=== PATIENT | male | born 1985 | race Caucasian/White ===

== ENCOUNTER 2022-08-29 13:31 | Inpatient (IN) | payer OTHER ==
[2022-08-29 16:00] VITALS: BMI 23.1
[2022-08-29] MEDS ORDERED: MAGNESIUM HYDROX 2400MG/30ML ORAL SUSPENSION 30 ML CUP PO PRN (19:09)
[2022-08-29] MEDS ORDERED: MAG HYDROX/AL HYDROX/SIMETH 30 ML UNIT-DOSE CUP PO PRN (19:09)
[2022-08-29] MEDS ORDERED: P-EPHED 60MG/TRIPROLIDI 2.5MG TABLET PO PRN (19:09)
[2022-08-29] MEDS ORDERED: NICOTINE 10 MG CARTRIDGE (INHALER) IH PRN (19:09)
[2022-08-29] MEDS ORDERED: LOPERAMIDE HCL 2 MG CAPSULE PO PRN (19:09)
[2022-08-29] MEDS ORDERED: ACETAMINOPHEN 325 MG TABLET (FP) PO PRN (19:09)
[2022-08-29] MEDS ORDERED: IBUPROFEN 400 MG TABLET (FP) PO PRN (19:09)
[2022-08-29] MEDS ORDERED: POLYETHYLENE GLYCOL (HEALTHYLAX) 3350 17 GM PACKET PO PRN (19:09)
[2022-08-29] MEDS: PRENATAL VITAMINS W/ FOLIC ACID TABLET (FP) PO SCH (19:27)
[2022-08-29] MEDS ORDERED: MELATONIN 5 MG TABLETS PO SCH (22:00)
[2022-08-29] MEDS: hydrOXYzine PAMOATE 25 MG CAPSULE (FP) PO PRN (22:02)
[2022-08-29] MEDS: THIAMINE HCL 100 MG TABLET (FP) PO SCH (22:02)
[2022-08-29] MEDS ORDERED: TUBERCULIN PPD 5 TU/0.1ML VIAL ID ONE (22:06)
[2022-08-29] MEDS: NICOTINE 7 MG/24 HOURS TOPICAL PATCH TD SCH (22:11)
[2022-08-30] MEDS: PRENATAL VITAMINS W/ FOLIC ACID TABLET (FP) PO SCH (09:51)
[2022-08-30] MEDS: NICOTINE 7 MG/24 HOURS TOPICAL PATCH TD SCH (09:51)
[2022-08-30 10:26] LABS: HEMATOCRIT 43.3 % (35.4-49); HEMOGLOBIN 13.9 GM/dL (11.7-16.9); MCH 22.4 pg (25.7-33.7); MEAN CELL VOLUME 70.1 fl (80-96); PLATELET COUNT 313 10^3/uL (134-434); RBC 6.18 M/mm3 (4.00-5.60); RDW 15.6 % (11.9-15.9); WHITE BLOOD COUNT 10.8 K/mm3 (4.0-10.0)
[2022-08-30 11:30] LABS: ALBUMIN 3.8 g/dl (3.4-5.0); BLOOD UREA NITROGEN 21.2 mg/dL (7-18); CALCIUM 9.8 mg/dL (8.5-10.1)
[2022-08-30 11:33] LABS: CREATININE 0.9 mg/dL (0.55-1.3)
[2022-08-30 11:35] LABS: TOT PROT 7.1 g/dl (6.4-8.2)
[2022-08-30 11:36] LABS: SYPHILIS W/ RPR CONF NON-REACTIVE (NONREACTIVE)
[2022-08-30] MEDS ORDERED: NICOTINE 7 MG/24 HOURS TOPICAL PATCH TD PRN (15:09)
[2022-08-30 18:06] LABS: PH,URINE 6.5 (5.0-8.0); URINE APPEARANCE CLEAR; URINE BILIRUBIN NEGATIVE (NEGATIVE); URINE COLOR YELLOW; URINE GLUCOSE (UA) NEGATIVE (NEGATIVE); URINE KETONE NEGATIVE (NEGATIVE); URINE LEUK ESTERASE NEGATIVE (NEGATIVE); URINE NITRITE NEGATIVE (NEGATIVE); URINE PROTEIN NEGATIVE (NEGATIVE); URINE UROBILINOGEN 0.2 mg/dL (0.2-1.0)
[2022-08-30] MEDS: MELATONIN 5 MG TABLETS PO SCH (21:22)
[2022-08-30] MEDS: THIAMINE HCL 100 MG TABLET (FP) PO SCH (21:22)
[2022-08-31] MEDS: SERTRALINE HCL 50 MG TABLET (FP) PO SCH (09:26)
[2022-08-31] MEDS: PRENATAL VITAMINS W/ FOLIC ACID TABLET (FP) PO SCH (09:26)
[2022-08-31] MEDS: hydrOXYzine PAMOATE 25 MG CAPSULE (FP) PO PRN (21:24)
[2022-08-31] MEDS: THIAMINE HCL 100 MG TABLET (FP) PO SCH (21:24)
[2022-08-31] MEDS: MELATONIN 5 MG TABLETS PO SCH (21:24)
[2022-09-01] MEDS: SERTRALINE HCL 50 MG TABLET (FP) PO SCH (09:24)
[2022-09-01] MEDS: PRENATAL VITAMINS W/ FOLIC ACID TABLET (FP) PO SCH (09:24)
[2022-09-01] MEDS: MELATONIN 5 MG TABLETS PO SCH (21:11)
[2022-09-01] MEDS: THIAMINE HCL 100 MG TABLET (FP) PO SCH (21:11)
[2022-09-02] MEDS: SERTRALINE HCL 50 MG TABLET (FP) PO SCH (09:43)
[2022-09-02] MEDS: PRENATAL VITAMINS W/ FOLIC ACID TABLET (FP) PO SCH (09:43)
[2022-09-02] MEDS: THIAMINE HCL 100 MG TABLET (FP) PO SCH (21:10)
[2022-09-02] MEDS: MELATONIN 5 MG TABLETS PO SCH (21:10)
[2022-09-03] MEDS: SERTRALINE HCL 50 MG TABLET (FP) PO SCH (10:21)
[2022-09-03] MEDS: PRENATAL VITAMINS W/ FOLIC ACID TABLET (FP) PO SCH (10:22)
[2022-09-03] MEDS: MELATONIN 5 MG TABLETS PO SCH (21:11)
[2022-09-03] MEDS: THIAMINE HCL 100 MG TABLET (FP) PO SCH (21:11)
[2022-09-04] MEDS: SERTRALINE HCL 50 MG TABLET (FP) PO SCH (09:44)
[2022-09-04] MEDS: PRENATAL VITAMINS W/ FOLIC ACID TABLET (FP) PO SCH (09:44)
[2022-09-04] MEDS: hydrOXYzine PAMOATE 25 MG CAPSULE (FP) PO PRN (21:08)
[2022-09-04] MEDS: MELATONIN 5 MG TABLETS PO SCH (21:08)
[2022-09-04] MEDS: THIAMINE HCL 100 MG TABLET (FP) PO SCH (21:08)
[2022-09-05] MEDS: PRENATAL VITAMINS W/ FOLIC ACID TABLET (FP) PO SCH (09:40)
[2022-09-05] MEDS: SERTRALINE HCL 50 MG TABLET (FP) PO SCH (09:40)
[2022-09-05] MEDS: THIAMINE HCL 100 MG TABLET (FP) PO SCH (21:11)
[2022-09-05] MEDS: MELATONIN 5 MG TABLETS PO SCH (21:11)
[2022-09-05] MEDS: hydrOXYzine PAMOATE 25 MG CAPSULE (FP) PO PRN (21:11)
[2022-09-06] MEDS: BENZOCAINE/MENTHOL (CHLORASEPTIC ) LOZENGE MM PRN (00:31)
[2022-09-06] MEDS: PRENATAL VITAMINS W/ FOLIC ACID TABLET (FP) PO SCH (10:05)
[2022-09-06] MEDS: SERTRALINE HCL 50 MG TABLET (FP) PO SCH (10:05)
[2022-09-06] MEDS: THIAMINE HCL 100 MG TABLET (FP) PO SCH (21:25)
[2022-09-06] MEDS: hydrOXYzine PAMOATE 25 MG CAPSULE (FP) PO PRN (21:25)
[2022-09-06] MEDS: MELATONIN 5 MG TABLETS PO SCH (21:25)
[2022-09-07] MEDS: guaiFENesin 200 MG/10 ML 10 ML UNIT-DOSE CUPS PO PRN ×2 (00:03→21:01)
[2022-09-07] MEDS: BENZOCAINE/MENTHOL (CHLORASEPTIC ) LOZENGE MM PRN ×2 (00:03→23:40)
[2022-09-07] MEDS: PRENATAL VITAMINS W/ FOLIC ACID TABLET (FP) PO SCH (09:48)
[2022-09-07] MEDS: SERTRALINE HCL 50 MG TABLET (FP) PO SCH (09:49)
[2022-09-07] MEDS: THIAMINE HCL 100 MG TABLET (FP) PO SCH (21:00)
[2022-09-07] MEDS: MELATONIN 5 MG TABLETS PO SCH (21:00)
[2022-09-07] MEDS: hydrOXYzine PAMOATE 25 MG CAPSULE (FP) PO PRN (21:01)
[2022-09-08] MEDS: PRENATAL VITAMINS W/ FOLIC ACID TABLET (FP) PO SCH (09:29)
[2022-09-08] MEDS: SERTRALINE HCL 50 MG TABLET (FP) PO SCH (09:29)
[2022-09-08] MEDS: THIAMINE HCL 100 MG TABLET (FP) PO SCH (21:05)
[2022-09-08] MEDS: hydrOXYzine PAMOATE 25 MG CAPSULE (FP) PO PRN (21:05)
[2022-09-08] MEDS: MELATONIN 5 MG TABLETS PO SCH (21:05)
[2022-09-09] MEDS: guaiFENesin 200 MG/10 ML 10 ML UNIT-DOSE CUPS PO PRN ×2 (00:25→23:52)
[2022-09-09] MEDS: BENZOCAINE/MENTHOL (CHLORASEPTIC ) LOZENGE MM PRN ×2 (09:45→22:30)
[2022-09-09] MEDS: PRENATAL VITAMINS W/ FOLIC ACID TABLET (FP) PO SCH (09:45)
[2022-09-09] MEDS: SERTRALINE HCL 50 MG TABLET (FP) PO SCH (09:45)
[2022-09-09] MEDS: THIAMINE HCL 100 MG TABLET (FP) PO SCH (21:27)
[2022-09-09] MEDS: hydrOXYzine PAMOATE 25 MG CAPSULE (FP) PO PRN (21:27)
[2022-09-09] MEDS: MELATONIN 5 MG TABLETS PO SCH (21:28)
[2022-09-10] MEDS: PRENATAL VITAMINS W/ FOLIC ACID TABLET (FP) PO SCH (09:25)
[2022-09-10] MEDS: SERTRALINE HCL 50 MG TABLET (FP) PO SCH (09:25)
[2022-09-10] MEDS: BENZOCAINE/MENTHOL (CHLORASEPTIC ) LOZENGE MM PRN ×2 (09:26→21:31)
[2022-09-10] MEDS: hydrOXYzine PAMOATE 25 MG CAPSULE (FP) PO PRN (21:30)
[2022-09-10] MEDS: MELATONIN 5 MG TABLETS PO SCH (21:30)
[2022-09-10] MEDS: THIAMINE HCL 100 MG TABLET (FP) PO SCH (21:30)
[2022-09-11] MEDS: PRENATAL VITAMINS W/ FOLIC ACID TABLET (FP) PO SCH (09:36)
[2022-09-11] MEDS: SERTRALINE HCL 50 MG TABLET (FP) PO SCH (09:36)
[2022-09-11] MEDS: THIAMINE HCL 100 MG TABLET (FP) PO SCH (21:24)
[2022-09-11] MEDS: hydrOXYzine PAMOATE 25 MG CAPSULE (FP) PO PRN (21:24)
[2022-09-11] MEDS: MELATONIN 5 MG TABLETS PO SCH (21:24)
[2022-09-12] MEDS: guaiFENesin 200 MG/10 ML 10 ML UNIT-DOSE CUPS PO PRN (00:29)
[2022-09-12 06:48] VITALS: BP 111/73; PULSE 73; RESP 16; TEMP 98.2
[2022-09-12] MEDS: PRENATAL VITAMINS W/ FOLIC ACID TABLET (FP) PO SCH (09:07)
[2022-09-12] MEDS: SERTRALINE HCL 50 MG TABLET (FP) PO SCH (09:07)
== END 2022-09-12 09:17 | disposition home or self-care (01) | DRG 772 ==
LOC: YASAS 13:31 → Y3E 20:58
PROVIDERS: ADMIT Allergy & Immunology; ATTEND Psychiatry & Neurology Pain Medicine
PROC: HZ42ZZZ Group Counseling for Substance Abuse Treatment, Cognitive-Behavioral (ICD-10-PCS; principal; 2022-08-29)
DX: F13.20 Sedative, hypnotic or anxiolytic dependence, uncomplicated (principal); F14.20 Cocaine dependence, uncomplicated; F12.20 Cannabis dependence, uncomplicated; F16.10 Hallucinogen abuse, uncomplicated; F33.9 Major depressive disorder, recurrent, unspecified; F41.9 Anxiety disorder, unspecified; F43.10 Post-traumatic stress disorder, unspecified; F19.282 Other psychoactive substance dependence with psychoactive substance-induced sleep disorder; I49.8 Other specified cardiac arrhythmias; Z62.810 Personal history of physical and sexual abuse in childhood; Z95.810 Presence of automatic (implantable) cardiac defibrillator; Z56.0 Unemployment, unspecified; Z59.01 Sheltered homelessness
CPT/HCPCS: 36415; 80053; 81003; 85027; 86780; 86803; C9803-CS; U0003; U0005

== ENCOUNTER 2023-07-24 21:30 | Inpatient (IN) | payer OTHER ==
[2023-07-24] MEDS ORDERED: MELATONIN 5 MG TABLETS PO SCH (22:00)
[2023-07-24 22:26] VITALS: BMI 19.2
[2023-07-24] MEDS ORDERED: POLYETHYLENE GLYCOL (HEALTHYLAX) 3350 17 GM PACKET PO PRN (23:06)
[2023-07-24] MEDS ORDERED: BENZONATATE 200 MG CAPSULE PO PRN (23:06)
[2023-07-24] MEDS ORDERED: COLLOIDAL OATMEAL 1 BAR EACH TP PRN (23:06)
[2023-07-24] MEDS ORDERED: MAG HYDROX/AL HYDROX/SIMETH 30 ML UNIT-DOSE CUP PO PRN (23:06)
[2023-07-24] MEDS ORDERED: NALOXONE HCL 0.4 MG/ML VIAL IM PRN (23:06)
[2023-07-24] MEDS ORDERED: MAGNESIUM HYDROX 2400MG/30ML ORAL SUSPENSION 30 ML CUP PO PRN (23:06)
[2023-07-24] MEDS ORDERED: IBUPROFEN 600 MG TABLET (FP) PO PRN (23:06)
[2023-07-24] MEDS ORDERED: guaiFENesin 600 MG TABLET.ER (FP) PO PRN (23:06)
[2023-07-24] MEDS ORDERED: ACETAMINOPHEN 325 MG TABLET (FP) PO PRN (23:06)
[2023-07-24] MEDS ORDERED: IBUPROFEN 400 MG TABLET (FP) PO PRN (23:06)
[2023-07-24] MEDS ORDERED: LOPERAMIDE HCL 2 MG CAPSULE PO PRN (23:06)
[2023-07-24] MEDS ORDERED: NALOXONE HCL (KLOXXADO) 8 MG SPRAY NS PRN (23:06)
[2023-07-24] MEDS ORDERED: NICOTINE POLACRILEX 2 MG GUM BUC PRN (23:06)
[2023-07-24] MEDS ORDERED: BENZOCAINE/MENTHOL (CHLORASEPTIC ) LOZENGE MM PRN (23:06)
[2023-07-25] MEDS ORDERED: PRENATAL VITAMINS W/ FOLIC ACID TABLET (FP) PO SCH (10:00)
[2023-07-25] MEDS ORDERED: NICOTINE 14 MG/24 HOURS TOPICAL PATCH TD SCH (10:00)
[2023-07-25 10:22] LABS: HEMOGLOBIN 12.1 GM/dL (11.7-16.9); MCH 22.4 pg (25.7-33.7); MCHC 31.1 g/dl (32.0-35.9); MEAN CELL VOLUME 72.1 fl (80-96); MEAN PLT VOLUME 7.4 fl (7.5-11.1); PLATELET COUNT 378 10^3/uL (134-434); RBC 5.41 M/mm3 (4.00-5.60); RDW 14.9 % (11.9-15.9); WHITE BLOOD COUNT 11.7 K/mm3 (4.0-10.0)
[2023-07-25 10:29] LABS: CHLORIDE 108 mmol/L (98-107); POTASSIUM 3.9 mmol/L (3.5-5.1); SODIUM 142 mmol/L (136-145)
[2023-07-25 10:30] LABS: ALBUMIN 2.6 g/dl (3.4-5.0); ANION GAP 5 mmol/L (4-13); BLOOD UREA NITROGEN 16.9 mg/dL (7-18); CALCIUM 8.5 mg/dL (8.5-10.1); CO2 29 mmol/L (21-32); GLUCOSE,RANDOM 131 mg/dL (74-106)
[2023-07-25 10:33] LABS: CREATININE 0.8 mg/dL (0.55-1.3); SGPT/ALT 29 U/L (13-61)
[2023-07-25 10:34] LABS: SGOT/AST 21 U/L (15-37)
[2023-07-25 10:35] LABS: BILIRUBIN,TOTAL 0.5 mg/dL (0.2-1); TOT PROT 6.1 g/dl (6.4-8.2)
[2023-07-25 10:36] LABS: ALK PHOS 83 U/L (45-117)
[2023-07-25] MEDS ORDERED: PRENATAL VITAMINS W/ FOLIC ACID TABLET (FP) PO PRN (12:48)
[2023-07-25] MEDS ORDERED: NICOTINE 14 MG/24 HOURS TOPICAL PATCH TD PRN (12:48)
[2023-07-25 13:40] LABS: SYPHILIS W/ RPR CONF NON-REACTIVE (NONREACTIVE)
[2023-07-25] MEDS ORDERED: hydrOXYzine PAMOATE 25 MG CAPSULE (FP) PO PRN (14:08)
[2023-07-25 16:56] VITALS: BP 127/87; PULSE 96; RESP 18; TEMP 97.6
[2023-07-25] MEDS ORDERED: THIAMINE HCL 100 MG TABLET (FP) PO SCH (22:00)
== END 2023-07-25 17:10 | disposition left against medical advice (07) | DRG 770 ==
LOC: YASAS 21:30 → Y3W 07-25 06:05 → Y3E 07-25 06:08
PROVIDERS: ADMIT Allergy & Immunology; ATTEND Psychiatry & Neurology Pain Medicine
PROC: HZ42ZZZ Group Counseling for Substance Abuse Treatment, Cognitive-Behavioral (ICD-10-PCS; principal; 2023-07-25)
DX: F14.10 Cocaine abuse, uncomplicated (principal); F15.20 Other stimulant dependence, uncomplicated; F12.20 Cannabis dependence, uncomplicated; F41.9 Anxiety disorder, unspecified; F19.280 Other psychoactive substance dependence with psychoactive substance-induced anxiety disorder; F19.282 Other psychoactive substance dependence with psychoactive substance-induced sleep disorder; F19.24 Other psychoactive substance dependence with psychoactive substance-induced mood disorder; F17.210 Nicotine dependence, cigarettes, uncomplicated; F32.A Depression, unspecified; I49.8 Other specified cardiac arrhythmias; Z95.0 Presence of cardiac pacemaker
CPT/HCPCS: 36415; 80053; 80307; 85027; 86780; 86803; 87635; 87811; 93005; 93010